=== PATIENT | female | born 1955 | race Caucasian/White ===

== ENCOUNTER 2023-05-17 11:40 | Emergency (ER) | payer BC, MEDICARE ==
[2023-05-17 11:59] VITALS: BP 117/73; PULSE 63; RESP 18; TEMP 97.8; BMI 16.6
[2023-05-17] MEDS ORDERED: IBUPROFEN 400 MG TABLET (FP) PO ONE ×2 (11:59→12:07)
== END 2023-05-17 12:42 | disposition home or self-care (01) ==
LOC: FER 11:40
DX: M25.531 Pain in right wrist (principal); S52.591A Other fractures of lower end of right radius, initial encounter for closed fracture; W01.0XXA Fall on same level from slipping, tripping and stumbling without subsequent striking against object, initial encounter
CPT/HCPCS: 73110-TC-RT-FY; 73130-TC-RT-FY; 99283-25